=== PATIENT | female | born 1965 ===

== ENCOUNTER 2017-12-03 10:09 | Emergency (ER) | payer BC ==
[2017-12-03] MEDS ORDERED: Lidocaine 1%* 5 ML VIAL INJ ONE (12:08)
--- NOTE | 2017-12-03 12:18 | UC ---
Laceration HPI - HPI Summary HPI Summary: 52 y/o female presents to the urgent care c/o grabbed the [place]ia [place] with her left hand - History Of Current Complaint Chief Complaint: UCLaceration Stated Complaint: L HAND INJURY Time Seen by Provider: 12/03/17 11:55 Hx Obtained From: Patient Pain Intensity: 1 - Allergies/Home Medications Allergies/Adverse Reactions: Allergies Allergy/AdvReac Type Severity Reaction Status Date / Time No Known Allergies Allergy Verified 12/03/17 10:22 PMH/Surg Hx/FS Hx/Imm Hx - Surgical History Surgical History: Yes Surgery Procedure, Year, and Place: acl right wrist - Social History Alcohol Use: Daily Substance Use Type: None Smoking Status (MU): Never Smoked Tobacco - Immunization History Most Recent Tetanus Shot: 5 years ago Physical Exam Vital Signs: Initial Vital Signs Temp 98 F 12/03/17 10:18 Pulse 70 12/03/17 10:18 Resp 16 12/03/17 10:18 BP 140/88 12/03/17 10:18 Pulse Ox 100 12/03/17 10:18 Laceration Course/Dx - Differential Dx - Laceration/Wound Provider Diagnoses: 1- laceration repair of left 3rd and 4th phalanx. 2- Laceration repair of left palm hand. 3- Elevated BP w/o Hx of HTN Discharge - Sign-Out/Discharge Documenting (check all that apply): Patient Departure - d/C home All imaging exams completed and their final reports reviewed: No Studies - Discharge Plan Condition: Stable Disposition: HOME Prescriptions: Bacitracin OINTMENT* 1 applic TOPICAL BID #1 tube Patient Education Materials: Care For Your Stitches (ED), Laceration (ED), Low- Sodium Diet (ED) Referrals: Yadiel Iglesias MD [Primary Care Provider] - 2 Weeks Additional Instructions: 1-Please apply topical antibiotic over the wound. Keep wound clean and dry 2- F/u suture removal in 12-14 days days w/ your PCP or here at the urgent care. 3-Take Ibuprofen or Tylenol PO q6-8hrs prn for pain or swelling. 4- If you develop fever or redness around your fingers please return to the Urgent care or your PCP for further treatment 5-Your BP is elevated today. please decrease salt in your diet, monitor BP and if it continues to be elevated please f/u with your PCP for further management - Billing Disposition and Condition Condition: STABLE Disposition: Home
[2017-12-03] MEDS ORDERED: Tetan/Diph/Pertus SYR(Tdap)* 0.5 ML SYR(BOOSTRIX) use SYR IM ONE (13:06)
[2017-12-03 13:22] VITALS: BP 121/88
== END 2017-12-03 13:29 | disposition home or self-care (01) ==
LOC: UCEAST 10:09
DX: S61.412A Laceration without foreign body of left hand, initial encounter (principal); S61.213A Laceration without foreign body of left middle finger without damage to nail, initial encounter; S61.215A Laceration without foreign body of left ring finger without damage to nail, initial encounter; R03.0 Elevated blood-pressure reading, without diagnosis of hypertension; W45.8XXA Other foreign body or object entering through skin, initial encounter; Y92.9 Unspecified place or not applicable
CPT/HCPCS: 90471; 90715; 99202; G0463